=== PATIENT | male | born 1960 | race Two or more races ===

== ENCOUNTER 2016-07-11 09:15 | Emergency (ER) | payer OTHER ==
[~2016-07-11] VITALS: Ht 162.6 cm; Wt 70.3 kg
[2016-07-11] MEDS ORDERED: BACITRACIN TOP OINT 1 UD PKG TOP ONE (10:41)
[2016-07-11 12:13] VITALS: BP 108/60
== END 2016-07-11 12:17 | disposition home or self-care (01) ==
LOC: ER 09:21
DX: S61.211A Laceration without foreign body of left index finger without damage to nail, initial encounter (principal); S61.217A Laceration without foreign body of left little finger without damage to nail, initial encounter; S61.215A Laceration without foreign body of left ring finger without damage to nail, initial encounter; W27.8XXA Contact with other nonpowered hand tool, initial encounter; Y93.89 Activity, other specified; Y99.8 Other external cause status; Y92.89 Other specified places as the place of occurrence of the external cause
CPT/HCPCS: 12002; 93005

== ENCOUNTER 2016-07-13 07:41 | Emergency (ER) | payer OTHER ==
[~2016-07-13] VITALS: Ht 165.1 cm; Wt 70.3 kg
[2016-07-13 07:48] VITALS: BP 136/90
== END 2016-07-13 08:05 | disposition home or self-care (01) ==
LOC: ER 07:41
DX: S61.219D Laceration without foreign body of unspecified finger without damage to nail, subsequent encounter (principal); Z48.02 Encounter for removal of sutures